=== PATIENT | female | born 1965 | race African-American/Black ===

== ENCOUNTER 2022-10-30 10:29 | Outpatient (CLI) | payer MEDICARE | END 2022-10-30 10:30 | disposition home or self-care (01) | LOC: CSHMAMMO 10:29 | PROVIDERS: ATTEND Family Medicine | DX: Z12.31 Encounter for screening mammogram for malignant neoplasm of breast (principal) | CPT/HCPCS: 77063; 77067 ==

== ENCOUNTER 2023-01-31 08:28 | Outpatient (CLI) | payer OTHER | END 2023-01-31 08:29 | disposition home or self-care (01) | LOC: CSHULT 08:28 | PROVIDERS: ATTEND Family Medicine | DX: R10.11 Right upper quadrant pain (principal) | CPT/HCPCS: 76700 ==